=== PATIENT | male | born 1995 | race Hispanic/Latino ===

== ENCOUNTER 2016-11-02 13:39 | Emergency (ER) | payer SELFPAY ==
[~2016-11-02] VITALS: Ht 190.5 cm; Wt 140.0 kg
[~2016-11-02 13:39] MED LIST: EPIPEN0.3 MG IM; MEDDOSEPAK PO; [UNRECOGNIZED DRUG - REMARK]
[2016-11-02] MEDS ORDERED: PENICILLN VK500 MG PO (13:59)
[2016-11-02 14:15] VITALS: BP 132/82
== END 2016-11-02 14:15 | disposition home or self-care (01) | DRG 153 ==
LOC: ED 13:39
DX: J02.9 Acute pharyngitis, unspecified (principal); R50.9 Fever, unspecified

== ENCOUNTER 2016-11-05 17:40 | Emergency (ER) | payer SELFPAY ==
[~2016-11-05] VITALS: Ht 190.5 cm; Wt 133.0 kg
[~2016-11-05 17:40] MED LIST changes: +PENICILLN VK500 MG PO
[2016-11-05 18:37] LABS: HEMATOCRIT 41.2 % (39.0-50.0); IMMATURE GRANULOCYTES 0.4 % (0.0-1.0); MEAN CELL VOLUME 83.7 fL CALC (80.0-100.0); MEAN CORPUSCULAR HGB 28.5 pG CALC (26.0-32.0); NEUT# 3.63 thou/uL (1.82-7.42); RED BLOOD COUNT 4.92 mill/uL (4.70-6.10); RED CELL DISTRI WIDTH 11.9 % (11.5-15.5)
[2016-11-05 18:38] LABS: URINE BILIRUBIN - DIPSTICK NEGATIVE (NEGATIVE); URINE BLOOD DIPSTICK NEGATIVE (NEGATIVE); URINE CLARITY CLEAR; URINE COLOR YELLOW; URINE GLUCOSE - DIPSTICK NEGATIVE (NEGATIVE); URINE KETONE NEGATIVE (NEGATIVE); URINE LEUK ESTERASE NEGATIVE (NEGATIVE); URINE NITRITE - DIPSTICK NEGATIVE (Negative); URINE PH 5.5 (4.5-8.0); URINE PROTEIN - DIPSTICK TRACE mg/dL (NEG-TRACE); URINE SPECIFIC GRAVITY 1.025
[2016-11-05 18:43] LABS: ALBUMIN 4.8 g/dL (3.2-5.0); ALKALINE PHOSPHATASE 55 u/l (38-126); AMYLASE 50 u/l (30-110); ANION GAP 18 (6-22 (CALC)); BILIRUBIN, TOTAL 1.3 mg/dL (0.0-1.4); BUN 13 mg/dL (9-20); BUN/CREATININE RATIO 16 (12-20 (CALC)); CALCIUM 9.4 mg/dL (8.4-10.2); CARBON DIOXIDE 28 mmol/l (22-30); CHLORIDE 103 mmol/l (95-108); CREATININE 0.8 mg/dL (0.7-1.3); GFR > 60 ML/MIN (>=60 (CALC)); GFR FOR AFR.AMER. > 60 ML/MIN (>=60 (CALC)); GLUCOSE 107 mg/dL (75-110); LIPASE 43 u/l (23-300); POTASSIUM 4.3 mmol/l (3.5-5.1); SGOT/AST 76 u/l (17-59); SGPT/ALT 146 u/l (21-72); SODIUM 145 mmol/l (137-146); TOTAL PROTEIN 7.8 g/dL (6.3-8.2)
[2016-11-05] MEDS ORDERED: ULTRAM50 M1 PO (21:00)
[2016-11-05 21:05] VITALS: BP 94/72
== END 2016-11-05 21:05 | disposition home or self-care (01) | DRG 313 ==
LOC: ED 17:40
DX: R07.89 Other chest pain (principal); R50.9 Fever, unspecified; R10.11 Right upper quadrant pain; R11.0 Nausea; R19.7 Diarrhea, unspecified; R05 Cough
CPT/HCPCS: Q9967

== ENCOUNTER 2020-05-08 01:59 | Emergency (ER) | payer SELFPAY ==
[~2020-05-08] VITALS: Ht 190.5 cm; Wt 127.0 kg
[~2020-05-08 01:59] MED LIST changes: +ULTRAM50 M1 PO
[2020-05-08] MEDS ORDERED: INSULIN (02:22)
[2020-05-08] MEDS ORDERED: KEFLEX500 MG PO (04:10)
[2020-05-08 04:28] VITALS: BP 136/74
== END 2020-05-08 04:28 | DRG 605 ==
LOC: ED 01:59
PROC: 0HQ0XZZ Repair Scalp Skin, External Approach (ICD-10-PCS; principal; 2020-05-08)
DX: S01.01XA Laceration without foreign body of scalp, initial encounter (principal); S00.81XA Abrasion of other part of head, initial encounter; S40.212A Abrasion of left shoulder, initial encounter; E11.9 Type 2 diabetes mellitus without complications; Y35.93XA Legal intervention, means unspecified, suspect injured, initial encounter; Y92.009 Unspecified place in unspecified non-institutional (private) residence as the place of occurrence of the external cause; Z79.4 Long term (current) use of insulin

== ENCOUNTER 2020-05-11 09:22 | Emergency (ER) | payer SELFPAY ==
[~2020-05-11] VITALS: Ht 190.5 cm; Wt 122.7 kg
[~2020-05-11 09:22] MED LIST changes: +INSULIN; +KEFLEX500 MG PO
[2020-05-11 10:38] VITALS: BP 138/81
== END 2020-05-11 11:08 | disposition home or self-care (01) | DRG 563 ==
LOC: ED 09:22
DX: S86.912A Strain of unspecified muscle(s) and tendon(s) at lower leg level, left leg, initial encounter (principal); E11.9 Type 2 diabetes mellitus without complications; Y35.93XA Legal intervention, means unspecified, suspect injured, initial encounter

== ENCOUNTER 2022-05-16 12:03 | Emergency (ER) | payer SELFPAY ==
[~2022-05-16] VITALS: Ht 190.5 cm; Wt 100.0 kg
[2022-05-16] VITALS (10 sets, daily range): BP systolic 112–133; BP diastolic 75–87
[2022-05-16] MEDS ORDERED: CORTISPORIN OTI10 M2 AD ×2 (12:58→13:59)
[2022-05-16 13:13] LABS: BASO% 0.5 % (0-3); EOS% 2.7 % (0-8); HEMATOCRIT 42.1 % (39.0-50.0); HEMOGLOBIN 15.5 g/dl (14.0-18.0); IMMATURE GRANULOCYTES 0.2 % (0.0-5.0); LYMPH% 20.2 % (15-41); MEAN CELL VOLUME 80.8 fL CALC (80.0-100.0); MEAN CORPUSCULAR HGB 29.8 pG CALC (26.0-32.0); MEAN CORPUSCULAR HGB CONC 36.8 g/dL CAL (32.0-36.0); MONO% 13.1 % (2-13); NEUT# 4.06 thou/uL (1.82-7.42); NEUT% 63.3 % (42-76); RED BLOOD COUNT 5.21 mill/uL (4.70-6.10); RED CELL DISTRI WIDTH 11.7 % (11.5-15.5)
[2022-05-16 13:38] LABS: ALBUMIN 4.2 g/dL (3.2-5.0); ALKALINE PHOSPHATASE 64 u/l (38-126); ANION GAP 15 (6-22 (CALC)); BILIRUBIN, TOTAL 1.3 mg/dL (0.0-1.4); BUN 12 mg/dL (9-20); BUN/CREATININE RATIO 22 (12-20 (CALC)); CARBON DIOXIDE 23 mmol/l (22-30); CHLORIDE 102 mmol/l (95-108); CREATININE 0.6 mg/dL (0.7-1.3); GFR FOR AFR.AMER. > 60 ML/MIN (>=60 (CALC)); GFR OTHER RACES > 60 ML/MIN (>=60 (CALC)); POTASSIUM 3.7 mmol/l (3.5-5.1); SGOT/AST 21 u/l (17-59)
[2022-05-16 13:39] LABS: SODIUM 136 mmol/l (137-146)
[2022-05-16] MEDS ORDERED: TAM75CAP PO ×2 (13:48→13:59)
[2022-05-16] MEDS ORDERED: ROBITUSSIN AC10 ML PO ×2 (13:48→13:59)
[2022-05-16] MEDS ORDERED: METFORMIN HYD1000 MG PO (13:59)
== END 2022-05-16 14:12 | disposition home or self-care (01) | DRG 153 ==
LOC: ED 12:03
PROVIDERS: Nurse Practitioner
DX: J11.1 Influenza due to unidentified influenza virus with other respiratory manifestations (principal); E11.65 Type 2 diabetes mellitus with hyperglycemia; Z79.4 Long term (current) use of insulin; Z20.822 Contact with and (suspected) exposure to COVID-19